=== PATIENT | male | born 1995 | race Caucasian/White ===

== ENCOUNTER 2019-08-09 13:23 | Emergency (ER) | payer OTHER ==
[~2019-08-09] VITALS: Ht 187.9 cm; Wt 90.7 kg
[~2019-08-09 13:23] MED LIST: BACTRIM DS 8001 TA1 PO; CEPHALEXIN500 M1 PO; CLEOCIN150 MG PO; MOTRIN800 MG PO; NORCO 5-325 TA1 EACH PO; PREDNISONE10 MG PO
== END 2019-08-09 16:35 | disposition home or self-care (01) ==
LOC: ED 13:23
DX: S00.83XA Contusion of other part of head, initial encounter (principal); W22.8XXA Striking against or struck by other objects, initial encounter; Y93.01 Activity, walking, marching and hiking; Y92.59 Other trade areas as the place of occurrence of the external cause; Y99.9 Unspecified external cause status

== ENCOUNTER 2023-05-27 21:32 | Emergency (ER) | payer SELFPAY ==
[~2023-05-27] VITALS: Ht 182.8 cm; Wt 90.7 kg
[2023-05-27] MEDS ORDERED: IBUPROFEN 800 MG TAB PO ONE (22:00)
[2023-05-27] MEDS ORDERED: AMOXICILLIN500 M3 PO (22:52)
[2023-05-27] MEDS ORDERED: AMOXICILLIN 500 MG CAP PO ONE (22:55)
== END 2023-05-27 23:03 | disposition home or self-care (01) ==
LOC: ED 21:32
DX: J02.9 Acute pharyngitis, unspecified (principal); Z20.822 Contact with and (suspected) exposure to COVID-19; R53.83 Other fatigue